=== PATIENT | female | born 1965 | race Caucasian/White ===

== ENCOUNTER → 2017-09-25 | Emergency (ER) | payer OTHER ==
[~2017-09-25] VITALS: Ht 172.7 cm; Wt 72.6 kg
== END | disposition left against medical advice (07) ==
LOC: ER 16:49
DX: Z53.20 Procedure and treatment not carried out because of patient's decision for unspecified reasons (principal)

== ENCOUNTER 2017-12-15 15:03 | Outpatient (CLI) | payer OTHER | END 2017-12-15 15:13 | disposition home or self-care (01) | LOC: RAD 15:03 | DX: R05 Cough (principal) ==

== ENCOUNTER 2018-08-10 14:50 | Emergency (ER) | payer OTHER ==
[~2018-08-10] VITALS: Ht 172.7 cm; Wt 86.2 kg
== END 2018-08-10 18:17 | disposition home or self-care (01) ==
LOC: ER 14:50
DX: M62.830 Muscle spasm of back (principal); M54.2 Cervicalgia; M54.5 Low back pain

== ENCOUNTER 2024-02-14 18:29 | Emergency (ER) | payer OTHER ==
[~2024-02-14] VITALS: Ht 172.7 cm; Wt 72.6 kg
[~2024-02-14 18:29] MED LIST: GLUMETZA500 MG
[2024-02-14] MEDS ORDERED: KETOROLAC TROMETHAMINE 30 MG VIAL IM ONE (18:45)
[2024-02-14] MEDS ORDERED: DEXAMETHASONE SODIUM PHOSPHATE 4 MG/ML VIAL IM ONE (18:45)
[2024-02-14] MEDS ORDERED: KETOROLAC TROMETHAMINE 30 MG VIAL ONE (19:01)
[2024-02-14] MEDS ORDERED: DEXAMETHASONE SODIUM PHOSPHATE 4 MG/ML VIAL ONE (19:02)
[2024-02-14] MEDS ORDERED: TRAMADOL HCL 50 MG TABLET PO ONE (19:30)
== END 2024-02-14 20:46 | disposition home or self-care (01) ==
LOC: ER 18:30
DX: M25.511 Pain in right shoulder (principal); M75.31 Calcific tendinitis of right shoulder

== ENCOUNTER 2025-03-20 20:07 | Emergency (ER) | payer OTHER ==
[~2025-03-20] VITALS: Ht 172.7 cm; Wt 76.2 kg
[2025-03-20] MEDS ORDERED: ORPHENADRINE CITRATE 30 MG/ML AMPUL IM ONE (23:00)
[2025-03-20] MEDS ORDERED: GUAIFEN/DEXTROMETHORPHAN/PE 10 ML BLIST.PACK PO ONE (23:00)
[2025-03-20] MEDS ORDERED: KETOROLAC TROMETHAMINE 60 MG VIAL IM ONE (23:00)
== END 2025-03-21 00:45 | disposition home or self-care (01) ==
LOC: ER 20:07
DX: M62.838 Other muscle spasm (principal); E11.9 Type 2 diabetes mellitus without complications; Z79.84 Long term (current) use of oral hypoglycemic drugs